=== PATIENT | female | born 1955 | race Caucasian/White ===

== ENCOUNTER 2023-04-25 18:45 | Emergency (ER) | payer MEDICARE ==
[2023-04-25] MEDS ORDERED: Naloxone 0.4 MG/ML SDV IVPUSH PRN (18:55)
[2023-04-25 19:57] LABS: BASOPHILS ABSOLUTE AUTO 0.04 K/uL (0.00-0.10); BASOPHILS PERCENT AUTO 0.2 % (0.1-1.3); EOSINOPHILS PERCENT AUTO 0.1 % (0.0-5.4); HEMATOCRIT 41.4 % (34.3-46.0); IMMATURE GRAN ABSOLUTE AUTO 0.09 K/uL (0.00-0.23); IMMATURE GRAN PERCENT AUTO 0.5 % (0.0-0.7); LYMPHOCYTES ABSOLUTE AUTO 1.03 K/uL (0.8-3.3); LYMPHOCYTES PERCENT AUTO 5.9 % (11.4-47.7); MEAN CORPUSCULAR HEMOGLOBIN 31.9 pg (31.6-35.5); MEAN CORPUSCULAR HGB CONC 33.8 g/dL (31.6-35.5); MEAN CORPUSCULAR VOLUME 94.3 fL (81.4-99.0); MONOCYTES ABSOLUTE AUTO 0.52 K/uL (0.20-0.90); NEUTROPHILS ABSOLUTE AUTO 15.78 K/uL (1.0-7.6); NEUTROPHILS PERCENT AUTO 90.3 % (40.0-78.1); PLATELET COUNT,PLT 333 K/uL (130-375); RED BLOOD CELL COUNT 4.39 M/uL (3.77-5.24); WHITE BLOOD CELL COUNT,WBC 17.5 K/uL (3.2-11.0)
[2023-04-25] MEDS ORDERED: Ketorolac 15 MG/ML SDV IVPUSH ONE (19:57)
[2023-04-25] MEDS ORDERED: Pantoprazole 40 MG Vial IVPUSH ONE (19:57)
[2023-04-25 19:58] LABS: CREATININE 0.9 mg/dL (0.5-1.0); EST CRCL DRUG DOSING (CG) 39.63 mL/min; ESTIMATED GFR 71 mL/min (>60)
[2023-04-25 19:59] LABS: EOSINOPHILS ABSOLUTE AUTO 0.01 K/uL (0.00-0.40)
[2023-04-25] MEDS ORDERED: Sodium Chloride 0.9% 50 ML IV SCH (20:15)
[2023-04-25] MEDS ORDERED: Iopamidol 612 MG/ML 100 ML Bottle IV SCH (20:15)
[2023-04-25 20:21] LABS: ALANINE AMINOTRANSFERASE,ALT 20 U/L (12-78); ALKALINE PHOSPHATASE 191 U/L (46-116); ANION GAP 14.2 mmol/L (5.0-14.0); ASPARTATE AMNIOTRANSFERASE,AST 24 U/L (15-37); BILIRUBIN TOTAL 0.7 mg/dL (0.2-1.0); BLOOD UREA NITROGEN,BUN 17 mg/dL (7-18); CARBON DIOXIDE,CO2 23 mmol/L (21-32); CHLORIDE,CL 103 mmol/L (100-108); GLUCOSE RANDOM 126 mg/dL (74-106); POTASSIUM,K 3.7 mmol/L (3.6-5.2); PROTEIN TOTAL,TP 8.1 g/dL (6.4-8.2); SODIUM,NA 140 mmol/L (140-148)
[2023-04-25 20:26] LABS: LACTIC ACID 2.4 mmol/L (0.4-2.0)
[2023-04-25] MEDS ORDERED: Prochlorperazine 10 MG/2 ML SDV IVPUSH STA (20:35)
[2023-04-25] MEDS ORDERED: fentaNYL 50 MCG/ML SDV IVPUSH STA (20:35)
[2023-04-25] MEDS ORDERED: Sodium Chloride 0.9% 1,000 ML IV SCH ×2 (21:30→23:30)
[2023-04-25 23:27] LABS: APPEARANCE,URINE CLEAR (CLEAR)
[2023-04-25 23:38] LABS: COLOR,URINE OTHER (YELLOW)
[2023-04-25 23:40] LABS: AMORPHOUS SEDIMENT,URINE NOT SEEN; BACTERIA,URINE FEW; EPITHELIAL CELLS,URINE FEW; MUCUS,URINE FEW; RBC,URINE 0-5 (0-5); WBC,URINE 0-5 (0-5)
== END 2023-04-26 00:39 | disposition home or self-care (01) ==
LOC: JP.ED 18:45
DX: R10.84 Generalized abdominal pain (principal); Z87.891 Personal history of nicotine dependence; Z88.2 Allergy status to sulfonamides; Z91.048 Other nonmedicinal substance allergy status
CPT/HCPCS: 36415; 74177; 80053; 80175; 81001; 83605; 83690; 85025; 86140; 96361; 96374; 96375; 99283; 99285; C9113; J0780; J1885; J3010; J3490; J7030; Q9967